=== PATIENT | female | born 1995 | race Caucasian/White ===

== ENCOUNTER 2017-09-29 00:57 | Emergency (ER) | payer SELFPAY ==
[2017-09-29 01:21] VITALS: BP 142/94
[2017-09-29] MEDS ORDERED: Aspirin 81 MG Tab.Chew PO ONE (01:38)
--- NOTE | 2017-09-29 01:44 | EDM.PDOC ---
ED HPI GENERAL MEDICAL PROBLEM - General Chief Complaint: General Stated Complaint: NUMBNESS IN FACE AND LEFT SIDE Time Seen by Provider: 09/29/17 01:30 Source of Information: Reports: Patient, RN History Limitations: Reports: No Limitations - History of Present Illness INITIAL COMMENTS - FREE TEXT/NARRATIVE: 22 yo non-smoking female presents after an episode of L arm numbness and tongue numbness. Has not been to her doctor in a long time. Has a pHx of hypothyroidism and has not been taking her meds. Has a FHx of AODM and hyperlipidemia. Is not on oral contraceptives. No hx of HTN. Drinks a lot of soda daily. Sx's lasted for several minutes, almost gone on arrival. No neck pain or hx of neck injury. Onset: Today Onset Date: 09/29/17 Onset Time: 00:50 Duration: Minutes:, Improving Location: Reports: Face, Upper Extremity, Left Quality: Reports: Other (numbness) Severity: Moderate Improves with: Reports: Other (time) Worsens with: Reports: Other (unknown) Context: Reports: Other (Obese, too much soda, untreated thyroid dz, FHx of lipid problems and AODM. 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) - Related Data Allergies Allergy/AdvReac Type Severity Reaction Status Date / Time No Known Allergies Allergy Verified 09/29/17 01:16 Home Meds: Home Meds NK [No Known Home Meds] 08/13/14 [History] Past Medical History - Past Surgical History HEENT Surgical History: Reports: Other (See Below) Other HEENT Surgeries/Procedures: jaw Social & Family History - Tobacco Use Smoking Status *Q: Never Smoker Second Hand Smoke Exposure: No - Caffeine Use Caffeine Use: Reports: Soda - Recreational Drug Use Recreational Drug Use: No ED ROS GENERAL - Review of Systems Review Of Systems: See Below Constitutional: Reports: No Symptoms HEENT: Reports: No Symptoms Respiratory: Reports: No Symptoms Cardiovascular: Reports: No Symptoms Endocrine: Reports: No Symptoms GI/Abdominal: Reports: No Symptoms : Reports: No Symptoms Musculoskeletal: Reports: No Symptoms Skin: Reports: No Symptoms Neurological: Reports: Numbness (tongue and L arm-resolved on arrival.) ED EXAM, GENERAL - Physical Exam Exam: See Below Exam Limited By: No Limitations General Appearance: Alert, WD/WN, No Apparent Distress, Obese Eye Exam: Bilateral Eye: EOMI, Normal Inspection, PERRL Ears: Normal External Exam, Normal Canal, Hearing Grossly Normal, Normal TMs Ear Exam: Bilateral Ear: Auricle Normal, Canal Normal, TM normal Nose: Normal Inspection, Normal Mucosa, No Blood Throat/Mouth: Normal Inspection, Normal Lips, Normal Oropharynx, Normal Voice, No Airway Compromise Head: Atraumatic, Normocephalic Neck: Normal Inspection, Supple Respiratory/Chest: No Respiratory Distress, Lungs Clear, Normal Breath Sounds Cardiovascular: Regular Rate, Rhythm, No Edema Back Exam: Normal Inspection Extremities: Normal Inspection, Normal Range of Motion, Non-Tender, No Pedal Edema Neurological: Alert, Oriented, CN II-XII Intact, Normal Cognition, Normal Reflexes, No Motor/Sensory Deficits. No: Disoriented, Abnormal Gait, Sensory/ Motor Deficit Psychiatric: Normal Affect, Normal Mood Skin Exam: Warm, Dry, Intact, Normal Color, No Rash Lymphatic: No Adenopathy Course - Vital Signs Last Recorded V/S: Last Vital Signs Temp 36.5 C 09/29/17 01:19 Pulse 83 09/29/17 01:19 Resp 15 09/29/17 01:19 BP 142/94 H 09/29/17 01:19 Pulse Ox 98 09/29/17 01:19 - Orders/Labs/Meds Orders: Active Orders 24 hr Category Date Time Status GLUCOSE POC LAB TO COLLECT [POC] Stat Lab 09/29/17 01:38 Ordered Aspirin Med 09/29/17 01:38 Once 324 mg PO ONETIME ONE Departure - Departure Time of Disposition: 01:46 Disposition: Home, Self-Care 01 Condition: Good Clinical Impression: Numbness and tingling in left arm, Numbness of tongue - Discharge Information Referrals: PCP,None [Primary Care Provider] - - My Orders Last 24 Hours: My Active Orders 09/29/17 01:38 GLUCOSE POC LAB TO COLLECT [POC] Stat Aspirin 324 mg PO ONETIME ONE - Assessment/Plan Last 24 Hours: My Active Orders 09/29/17 01:38 GLUCOSE POC LAB TO COLLECT [POC] Stat Aspirin 324 mg PO ONETIME ONE
== END 2017-09-29 01:58 | disposition home or self-care (01) ==
LOC: JP.ED 00:57
DX: R20.2 Paresthesia of skin (principal)
CPT/HCPCS: 82962; 99284; A9270

== ENCOUNTER 2019-11-13 23:48 | Emergency (ER) | payer MEDICAID ==
[2019-11-14] MEDS ORDERED: Simethicone 80 MG Tab.Chew PO ONE (00:07)
[2019-11-14 00:23] VITALS: BP 127/79; PULSE 105
[2019-11-14] MEDS ORDERED: Alum Hydrox/Mag Hydrox/Simeth 15 ML, Lidocaine 2% 15 ML PO ONE ×2 (00:40)
--- NOTE | 2019-11-14 00:47 | EDM.PDOC ---
ED HPI GENERAL MEDICAL PROBLEM - General Chief Complaint: Abdominal Pain Stated Complaint: ABD PAIN Time Seen by Provider: 11/14/19 00:30 Source of Information: Reports: Patient, Old Records, RN History Limitations: Reports: No Limitations - History of Present Illness INITIAL COMMENTS - FREE TEXT/NARRATIVE: 24 yo female was eating a late dinner and developed severe epigastric pain that lasted about 40 min and then subsided but never left completely. No other sx's. No hx of the same. No hx of any abdominal surgeries. Onset: Sudden, Gradual Onset Date: 11/13/19 Onset Time: 23:00 Duration: Minutes:, Improving Location: Reports: Abdomen Quality: Reports: Other (cramping, twisting) Severity: Severe Improves with: Reports: Other (time) Worsens with: Reports: Other (? eating) Context: Reports: Other (See HPI) Associated Symptoms: Reports: Nausea/Vomiting (no vomiting). 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: Neurological History: Reports: Other (See Below) Other Neuro History: thinks may have had a stroke 2017 Endocrine/Metabolic History: Reports: Hypothyroidism, Obesity/BMI 30+ - Infectious Disease History Infectious Disease History: Reports: Chicken Pox - Past Surgical History Head Surgeries/Procedures: Reports: None HEENT Surgical History: Reports: Oral Surgery, Other (See Below) Other HEENT Surgeries/Procedures: jaw, all top teeth removed Endocrine Surgical History: Reports: None Neurological Surgical History: Reports: None Social & Family History - Tobacco Use Smoking Status *Q: Never Smoker - Caffeine Use Caffeine Use: Reports: Soda - Recreational Drug Use Recreational Drug Use: No ED ROS GENERAL - Review of Systems Review Of Systems: See Below Constitutional: Reports: No Symptoms HEENT: Reports: No Symptoms Respiratory: Reports: No Symptoms Cardiovascular: Reports: No Symptoms GI/Abdominal: Reports: Abdominal Pain, Nausea, Other (burping). Denies: Black Stool, Distension, Flatus, Hematemesis, Hematochezia, Melena, Vomiting : Reports: No Symptoms Musculoskeletal: Reports: No Symptoms Skin: Reports: No Symptoms Neurological: Reports: No Symptoms ED EXAM, GI/ABD - Physical Exam Exam: See Below Exam Limited By: No Limitations General Appearance: Alert, WD/WN, No Apparent Distress, Obese Eyes: Bilateral: Normal Appearance Ears: Normal External Exam, Normal Canal, Hearing Grossly Normal Nose: Normal Inspection Throat/Mouth: Normal Inspection, Normal Lips, Normal Oropharynx, Normal Voice, No Airway Compromise Head: Atraumatic, Normocephalic Neck: Normal Inspection Respiratory/Chest: No Respiratory Distress, Lungs Clear, Normal Breath Sounds, No Accessory Muscle Use Cardiovascular: Regular Rate, Rhythm, No Edema GI/Abdominal Exam: Normal Bowel Sounds, Soft, No Distention, Tender (epigastrium). No: Non-Tender, Distended, Guarding, Rigid, Rebound Back Exam: Normal Inspection. No: CVA Tenderness (R), CVA Tenderness (L) Extremities: Normal Inspection, Normal Range of Motion, Non-Tender, No Pedal Edema Neurological: Alert, Oriented, CN II-XII Intact, Normal Cognition Psychiatric: Normal Affect, Normal Mood Skin Exam: Warm, Dry, Intact, Normal Color, No Rash Course - Vital Signs Last Recorded V/S: Last Vital Signs Temp 36.6 C 11/14/19 00:00 Pulse 105 H 11/14/19 00:00 Resp 18 11/14/19 00:00 BP 127/79 11/14/19 00:00 Pulse Ox 97 11/14/19 00:00 - Orders/Labs/Meds Labs: Laboratory Tests 11/14/19 11/14/19 Range/Units 00:12 00:18 WBC 13.2 H (4.5-11.0) K/uL RBC 5.07 (3.30-5.50) M/uL Hgb 12.3 (12.0-15.0) g/dL Hct 39.3 (36.0-48.0) % MCV 78 L (80-98) fL MCH 24 L (27-31) pg MCHC 31 L (32-36) % Plt Count 384 (150-400) K/uL Neut % (Auto) 70 H (36-66) % Lymph % (Auto) 21 L (24-44) % [place] % (Auto) 7 H (2-6) % Eos % (Auto) 2 (2-4) % Baso % (Auto) 0 (0-1) % Urine Color Yellow (YELLOW) Urine Appearance Clear (CLEAR) Urine pH 5.5 (5.0-8.0) Ur Specific [place] >= 1.030 (1.008-1.030) Urine Protein Negative (NEGATIVE) mg/dL Urine Glucose (UA) Negative (NEGATIVE) mg/dL Urine Ketones Negative (NEGATIVE) mg/dL Urine Occult Blood Negative (NEGATIVE) Urine Nitrite Negative (NEGATIVE) Urine Bilirubin Negative (NEGATIVE) Urine Urobilinogen 0.2 (0.2-1.0) EU/dL Ur Leukocyte Esterase Negative (NEGATIVE) Urine RBC 0-5 (0-5) Urine WBC 0-5 (0-5) Ur Epithelial Cells Moderate Amorphous Sediment Few Urine Bacteria Few Urine Mucus Moderate Meds: Medications Discontinued Medications Generic Name Dose Route Start Last Admin Trade Name Angie PRN Reason Stop Dose Admin Acetaminophen 1,000 mg 11/14/19 00:51 Tylenol Extra Strength PO 11/14/19 00:52 ONETIME ONE Al Hydroxide/Mg Hydroxide 15 0 ml 11/14/19 00:40 11/14/19 00:44 ml/ Lidocaine HCl 15 ml PO 11/14/19 00:41 15 ml ONETIME ONE Administration Famotidine 40 mg 11/14/19 00:52 Pepcid PO 11/14/19 00:53 ONETIME ONE Simethicone 160 mg 11/14/19 00:07 11/14/19 00:11 Simethicone PO 11/14/19 00:08 160 mg ONETIME ONE Administration - Re-Assessments/Exams Free Text/Narrative Re-Assessment/Exam: 11/14/19 00:53 50% reduction in her epigastric tenderness with GI cocktail po. Departure - Departure Time of Disposition: 01:00 Disposition: Home, Self-Care 01 Condition: Fair Clinical Impression: Gastritis Qualifiers: Gastritis type: unspecified gastritis Chronicity: acute Gastritis bleeding: without bleeding Qualified Code(s): K29.00 - Acute gastritis without bleeding - Discharge Information *PRESCRIPTION DRUG MONITORING PROGRAM REVIEWED*: No *COPY OF PRESCRIPTION DRUG MONITORING REPORT IN PATIENT ARIAS: No Prescriptions: Famotidine 40 mg PO BEDTIME #30 tablet Instructions: Gastritis, Adult, [id number] Referrals: PCP,None [Primary Care Provider] - Forms: ED Department Discharge Additional Instructions: Take famotidine every day at bedtime until gone to promote stomach healing. Take acetaminophen for pain relief. Avoid ibuprofen, Aleve, or aspirin. Avoid caffeine, carbonated beverages or alcohol. See your provider for recheck later this week. If symptoms persist may benefit from a gall bladder ultrasound. Sepsis Event Note (ED) - Evaluation Sepsis Screening Result: No Definite Risk - Focused Exam Vital Signs: Vital Signs Temp Pulse Resp BP Pulse Ox 11/14/19 00:00 36.6 C 105 H 18 127/79 97 11/13/19 23:59 36.6 C 105 H 18 127/79 97
[2019-11-14] MEDS ORDERED: Acetaminophen 500 MG Tab PO ONE (00:51)
[2019-11-14] MEDS ORDERED: Famotidine 20 MG Tab PO ONE (00:52)
== END 2019-11-14 01:02 | disposition home or self-care (01) ==
LOC: JP.ED 23:48
DX: K29.70 Gastritis, unspecified, without bleeding (principal); E03.9 Hypothyroidism, unspecified; E66.9 Obesity, unspecified; Z68.39 Body mass index [BMI] 39.0-39.9, adult; Z79.899 Other long term (current) drug therapy
CPT/HCPCS: 36415; 81001; 85025; 99284; A9270

== ENCOUNTER 2020-05-18 00:35 | Emergency (ER) | payer MEDICAID ==
[2020-05-18 01:21] VITALS: BP 135/87; PULSE 84
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
--- NOTE | 2020-05-19 09:31 | CR ---
Abdomen 2V AP Flat Upright CLINICAL HISTORY: Vomiting and epigastric pain FINDINGS: No free air is identified. Small intestinal configuration is nonacute. There is gas and feces are the colon. Impression: No acute intestinal gas pattern
== END 2020-05-18 02:40 | disposition home or self-care (01) ==
LOC: JP.ED 00:35
DX: K52.9 Noninfective gastroenteritis and colitis, unspecified (principal); E03.9 Hypothyroidism, unspecified; E66.9 Obesity, unspecified; E87.1 Hypo-osmolality and hyponatremia; Z68.37 Body mass index [BMI] 37.0-37.9, adult; Z79.899 Other long term (current) drug therapy
CPT/HCPCS: 36415; 74019; 74019-26; 80053; 83690; 85025; 99283; 99284-25

== ENCOUNTER 2020-06-27 08:42 | Day surgery (SDC) | payer MEDICAID ==
[~2020-06-27 08:42] MED LIST: Bupivacaine 0.5% 50 ML MDV ONE; Dexamethasone 4 MG/ML SDV ONE; Glycopyrrolate 0.2 MG/ML 5 ML MDV ONE; Lidocaine 1% with EPINEPHrine 1:100,000 50 ML MDV ONE; Neostigmine Methylsulfate 1 MG/ML 5 ML Syringe ONE; Ondansetron 4 MG/2 ML SDV ONE; Propofol 200 MG/20 ML SDV ONE; Rocuronium 50 MG/5 ML Vial ONE; fentaNYL 250 MCG/5 ML SDV ONE
[2020-06-27] MEDS ORDERED: Sodium Chloride 0.9% 1,000 ML IV SCH (09:15)
[2020-06-27] MEDS ORDERED: ceFAZolin 2 GM in Premix Bag 1 BAG IV ONE (09:15)
[2020-06-27] MEDS ORDERED: Docusate Sodium 100 MG Cap PO PRN (10:21)
[2020-06-27] MEDS ORDERED: Zolpidem 5 MG Tab PO PRN (10:21)
[2020-06-27] MEDS ORDERED: Benzocaine/Cetylpyridinium/Menthol Lozenge MUCMEM PRN (10:21)
[2020-06-27] MEDS ORDERED: Acetaminophen/HYDROcodone 325-5 MG Tab PO PRN (10:21)
[2020-06-27] MEDS ORDERED: hydrOXYzine HCL 100 MG/2 ML SDV IM PRN (10:21)
[2020-06-27] MEDS: metroNIDAZOLE/Normal Saline 500 MG in Premix Bag 1 BAG IV ONE ×2 (10:44→10:45)
[2020-06-27] MEDS ORDERED: fentaNYL 100 MCG/2 ML SDV ONE (11:19)
[2020-06-27 15:05] VITALS: BP 107/69; PULSE 83
--- NOTE | 2020-06-30 09:58 | OR ---
DATE OF PROCEDURE: 06/27/2020 SURGEON: Emilio Pascual MD PROCEDURE: Laparoscopic cholecystectomy. . The gallbladder was retracted cephalad. The infundibulum was retracted inferolaterally. Using blunt dissection, a "clear view" to the gallbladder was obtained with a single pulsatile structure entering the gallbladder and a single non-pulsatile structure entering the gallbladder. These were subsequently clipped and transected. The remaining one-third of the gallbladder was removed off the gallbladder bed without difficulty. This was delivered through the superior port without any difficulty. This was removed using a bag and mild dilation. The abdomen was re-insufflated. No evidence of bleeding was noted. The pressure dropped to 7. No bleeding. The irrigation was used, approximately 500 mL, and the remaining liquid was removed from the abdomen in multiple locations. The entry point was then inspected for injury. None was noted. The air was removed. The wounds were closed with 3-0 Vicryl and 4-0 Vicryl in interrupted running fashion. Dermabond was applied. The patient tolerated the procedure well. Emilio Pascual MD /[id number]
--- NOTE | 2020-06-30 11:12 | OR ---
DATE OF PROCEDURE: 06/27/2020 SURGEON: Emilio Pascual MD PROCEDURES: 1. Transversus abdominis plane block bilaterally. 2. Rectus sheath block, bilaterally. COMPLICATIONS: None. CHIEF SECURITY OFFICER: None. RISKS: Risks, benefits, alternatives, and limitations including, but not limited to infection, bleeding, and injury to abdominal structures were explained the patient, who wished to proceed. PROCEDURE IN DETAIL: The patient was placed in supine position. The left transversus plane was identified first. This was accessed using a 21-gauge needle under ultrasound guidance. 20% of the solution was injected directly. The right side was then performed in a same manner, same fashion, same technique, and same sequence using the same equipment. The rectus sheath was then injected bilaterally, both under direct visualization, both using 20% of the solution respectively. During these four injections at no point was the needle blindly advanced nor did it enter the abdominal cavity or past the peritoneum. The patient tolerated the procedure well. Emilio Pascual MD /[id number]
== END 2020-06-27 15:00 | disposition home or self-care (01) ==
LOC: JP.SDS 08:42
PROVIDERS: ATTEND Surgery
DX: K80.10 Calculus of gallbladder with chronic cholecystitis without obstruction (principal); D50.9 Iron deficiency anemia, unspecified; E03.9 Hypothyroidism, unspecified; E66.9 Obesity, unspecified; G43.909 Migraine, unspecified, not intractable, without status migrainosus; Z98.890 Other specified postprocedural states; Z79.899 Other long term (current) drug therapy; Z87.891 Personal history of nicotine dependence; Z68.36 Body mass index [BMI] 36.0-36.9, adult
CPT/HCPCS: 36415; 47562; 80053; 84703; 85027; 88304; J0171; J0690; J1100; J2405; J2704; J2710; J2795; J3010; J3490; J7030

== ENCOUNTER 2024-07-28 21:07 | Emergency (ER) | payer BC, MEDICAID ==
[2024-07-28 22:12] LABS: BASOPHILS ABSOLUTE AUTO 0.06 K/uL (0.00-0.10); BASOPHILS PERCENT AUTO 0.7 % (0.1-1.3); EOSINOPHILS ABSOLUTE AUTO 0.26 K/uL (0.00-0.40); EOSINOPHILS PERCENT AUTO 2.9 % (0.0-5.4); HEMATOCRIT 35.3 % (34.3-46.0); HEMOGLOBIN 11.1 g/dL (11.2-15.5); IMMATURE GRAN PERCENT AUTO 0.2 % (0.0-0.7); LYMPHOCYTES ABSOLUTE AUTO 3.32 K/uL (0.8-3.3); LYMPHOCYTES PERCENT AUTO 37.3 % (11.4-47.7); MEAN CORPUSCULAR HEMOGLOBIN 24.7 pg (31.6-35.5); MEAN CORPUSCULAR HGB CONC 31.4 g/dL (31.6-35.5); MEAN CORPUSCULAR VOLUME 78.4 fL (81.4-99.0); NEUTROPHILS ABSOLUTE AUTO 4.44 K/uL (1.0-7.6); NEUTROPHILS PERCENT AUTO 49.9 % (40.0-78.1); PLATELET COUNT,PLT 293 K/uL (130-375); WHITE BLOOD CELL COUNT,WBC 8.9 K/uL (3.2-11.0)
[2024-07-28 22:16] LABS: IMMATURE GRAN ABSOLUTE AUTO 0.02 K/uL (0.00-0.23)
[2024-07-28 22:35] LABS: BLOOD UREA NITROGEN,BUN 10 mg/dL (7-18); CALCIUM 8.8 mg/dL (8.5-10.1); CARBON DIOXIDE,CO2 27 mmol/L (21-32); CHLORIDE,CL 103 mmol/L (100-108); CREATININE 0.6 mg/dL (0.6-1.0); EST CRCL DRUG DOSING (CG) 113.41 mL/min; ESTIMATED GFR 124 mL/min (>60); GLUCOSE RANDOM 110 mg/dL (74-106); POTASSIUM,K 4.1 mmol/L (3.6-5.2); SODIUM,NA 139 mmol/L (140-148)
[2024-07-28 22:40] LABS: ANION GAP 13.1 mmol/L (5.0-14.0); TROPONIN I HIGH SENSITIVITY < 4.0 pg/mL (<=60.3)
[2024-07-28 23:25] VITALS: BP 122/77; PULSE 68
== END 2024-07-28 23:15 | disposition home or self-care (01) ==
LOC: JP.ED 21:07
DX: F41.0 Panic disorder [episodic paroxysmal anxiety] (principal); E03.9 Hypothyroidism, unspecified; E66.9 Obesity, unspecified; Z79.899 Other long term (current) drug therapy; Z68.28 Body mass index [BMI] 28.0-28.9, adult
CPT/HCPCS: 36415; 80048; 84484; 85025; 93005; 93010; 99282; 99285